=== PATIENT | female | born 1960 | race Caucasian/White ===

== ENCOUNTER 2017-10-04 19:50 | Emergency (ER) | payer SELFPAY ==
[~2017-10-04] VITALS: Ht 160 cm; Wt 84.0 kg
[2017-10-04] MEDS ORDERED: IPRATROPIUM BROMIDE (0.02%) 0.5MG/2.5ML NEB HHN SCH (20:04)
[2017-10-04] MEDS ORDERED: PREDNISONE 20MG TABLET PO SCH (20:04)
[2017-10-04] MEDS ORDERED: ALBUTEROL (0.083%) 2.5MG/3ML NEB HHN SCH (20:04)
[2017-10-04] MEDS ORDERED: DIPHENHYDRAMINE 50MG CAPSULE PO SCH (20:15)
[2017-10-04] MEDS ORDERED: FAMOTIDINE 20MG TABLET PO ONE (21:30)
[2017-10-05 00:25] VITALS: BP 128/80
== END 2017-10-05 00:25 | disposition home or self-care (01) ==
LOC: ER 19:50
DX: T78.40XA Allergy, unspecified, initial encounter (principal); E78.00 Pure hypercholesterolemia, unspecified; E11.9 Type 2 diabetes mellitus without complications; R13.10 Dysphagia, unspecified; R06.02 Shortness of breath; F17.200 Nicotine dependence, unspecified, uncomplicated; Y92.89 Other specified places as the place of occurrence of the external cause; Z88.0 Allergy status to penicillin; Z98.890 Other specified postprocedural states
CPT/HCPCS: 93005; 94640; 99284; J7512; J7611; Z7610; 99283; Q0163

== ENCOUNTER 2020-10-04 18:04 | Emergency (ER) | payer OTHER ==
[~2020-10-04] VITALS: Ht 167.6 cm; Wt 68.0 kg
[2020-10-04] MEDS ORDERED: ONDANSETRON HCL 4MG/2ML INJ IV STA (18:39)
[2020-10-04] MEDS ORDERED: SODIUM CHLORIDE 0.9% 1,000 ML IV ONE ×2 (18:45→20:15)
[2020-10-04 19:08] LABS: BASOPHILS % 0.3 % (0.0-2.0); HEMATOCRIT. 36.3 % (36.0-48.0); HEMOGLOBIN. 12.2 g/dL (12.0-16.0); LYMPHOCYTES % 37.8 % (20.0-50.0); MEAN CORPUSCULAR HEMOGLOBIN 29.8 pg (28.0-32.0); MEAN CORPUSCULAR VOLUME 88.8 fL (81.0-99.0); MEAN PLATELET VOLUME 10.1 fl (7.4-10.4); NEUTROPHILS % 53.9 % (40.0-76.0); PLATELET 154 x1000/uL (130-400); RED BLOOD CELL COUNT 4.09 mill/uL (4.2-5.4); RED CELL DISTRIBUTION WIDTH 14.3 % (11.6-14.6)
[2020-10-04 19:15] LABS: PROTHROMBIN TIME 10.9 sec (9.6-11.0)
[2020-10-04 19:18] LABS: CHLORIDE 109 mEq/L (98-107)
[2020-10-04 19:18] LABS: CLARITY URINE CLEAR (CLEAR); COLOR URINE YELLOW (YELLOW); KETONES URINE NEGATIVE (NEGATIVE); LEUKOCYTE ESTERASE URINE TRACE (NEGATIVE); NITRITE URINE NEGATIVE (NEGATIVE); OCCULT BLOOD URINE NEGATIVE (NEGATIVE); PH URINE 8.5 (4.5-8.0); PROTEIN URINE NEGATIVE (NEGATIVE); SPECIFIC GRAVITY URINE 1.006 (1.005-1.030); UROBILINOGEN URINE 0.2 E.U./dL (0.2-1.0)
[2020-10-04] MEDS ORDERED: IOHEXOL-300 100 ML BOTTLE ONE (20:53)
[2020-10-04 22:00] LABS: CHLORIDE 114 mEq/L (98-107)
[2020-10-04] MEDS ORDERED: MAGNESIUM/ALUMINUM HYDROXIDE/SIMETHICONE 30ML UDC PO STA (22:09)
[2020-10-04] MEDS ORDERED: VISCOUS LIDOCAINE 2% 15 ML UDC PO STA (22:09)
[2020-10-04] MEDS ORDERED: ONDA4TAB5 MT (22:30)
[2020-10-04] MEDS ORDERED: PROT40 MT (22:30)
[2020-10-04 23:09] VITALS: BP 140/80
== END 2020-10-04 23:10 | disposition home or self-care (01) ==
LOC: ER 18:04
DX: R10.13 Epigastric pain (principal); R10.12 Left upper quadrant pain; R11.2 Nausea with vomiting, unspecified; E11.9 Type 2 diabetes mellitus without complications; E78.00 Pure hypercholesterolemia, unspecified; I10 Essential (primary) hypertension; Z98.890 Other specified postprocedural states; Z88.0 Allergy status to penicillin
CPT/HCPCS: 36415; 74177; 80048; 80053; 81003; 82962; 83690; 85025; 85610; 93005; 96361; 96374; 99285; J2405; J7030; Q9967

== ENCOUNTER 2021-08-18 13:45 | Emergency (ER) | payer MEDICAID ==
[~2021-08-18] VITALS: Ht 157.5 cm; Wt 82.0 kg
[~2021-08-18 13:45] MED LIST: ONDA4TAB5 MT; PROT40 MT
[2021-08-18 15:46] LABS: BASOPHILS % 0.4 % (0.0-2.0); EOSINOPHILS % 0.7 % (0.0-5.0); HEMATOCRIT. 37.1 % (36.0-48.0); HEMOGLOBIN. 12.6 g/dL (12.0-16.0); LYMPHOCYTES % 35.8 % (20.0-50.0); MEAN CORPUSCULAR HEMOGLOBIN 29.7 pg (28.0-32.0); MEAN CORPUSCULAR VOLUME 87.1 fL (81.0-99.0); MEAN PLATELET VOLUME 9.7 fl (7.4-10.4); MONOCYTES % 7.5 % (2.0-8.0); NEUTROPHILS % 55.6 % (40.0-76.0); PLATELET 199 x1000/uL (130-400); RED BLOOD CELL COUNT 4.26 mill/uL (4.2-5.4); RED CELL DISTRIBUTION WIDTH 13.5 % (11.6-14.6)
[2021-08-18 15:55] LABS: CHLORIDE 105 mEq/L (98-107)
[2021-08-18] MEDS ORDERED: IBUPROFEN 400MG TABLET PO ONE (18:15)
[2021-08-18 18:33] LABS: CLARITY URINE CLEAR (CLEAR); COLOR URINE YELLOW (YELLOW); KETONES URINE NEGATIVE (NEGATIVE); LEUKOCYTE ESTERASE URINE NEGATIVE (NEGATIVE); NITRITE URINE NEGATIVE (NEGATIVE); OCCULT BLOOD URINE NEGATIVE (NEGATIVE); PROTEIN URINE NEGATIVE (NEGATIVE); UROBILINOGEN URINE 0.2 E.U./dL (0.2-1.0)
[2021-08-18] MEDS ORDERED: CIPR-263 MT (20:21)
[2021-08-18] MEDS ORDERED: IBUP-2028 MT (20:21)
[2021-08-18] MEDS ORDERED: CEFTRIAXONE SODIUM 1 G/VIAL IM ONE (20:30)
[2021-08-18] MEDS ORDERED: LEVOFLOXACIN 250MG TABLET PO ONE (20:30)
[2021-08-18] MEDS ORDERED: LIDOCAINE HCL 1% 20ML VIAL (Pyxis) INJ INFIL ONE (20:30)
[2021-08-18 21:32] VITALS: BP 160/82
== END 2021-08-18 21:35 | disposition home or self-care (01) ==
LOC: ER 13:45
DX: N12 Tubulo-interstitial nephritis, not specified as acute or chronic (principal); E11.9 Type 2 diabetes mellitus without complications; E78.00 Pure hypercholesterolemia, unspecified; I10 Essential (primary) hypertension; Z88.3 Allergy status to other anti-infective agents; Z98.890 Other specified postprocedural states
CPT/HCPCS: 36415; 71045; 74176; 80053; 81003; 85025; 93005; 99285